=== PATIENT | female | born 1995 | race Caucasian/White ===

== ENCOUNTER 2019-01-14 11:16 | Outpatient (CLI) | payer OTHER ==
--- NOTE | 2019-01-14 13:39 | ULT ---
OB ULTRASOUND: HISTORY: Size and dates. FINDINGS: A single live intrauterine gestation is seen with measurements corresponding to an estimated gestatio nal age of 16 weeks 1 day and MARY ANN at 06/30/2019. The estimated weight measures 147 gm or 5 ounc es. measurements are as follows: BPD 3.18 cm, 16 weeks HC 12.28 cm, 16 weeks 1 day AC 10.24 cm, 16 weeks 2 days FL 2.05 cm, 16 weeks 1 day heart rate measures 149 b.p.m. Placenta is anteriorly located without evidence of placenta pre via. Amniotic fluid within normal limits. IMPRESSION: Single live intrauterine of 16 weeks 1 day estimated gestational age and estimated date of delivery at 06/30/2019. POS: OFF
== END 2019-01-14 11:17 | disposition home or self-care (01) ==
LOC: SCSULT 11:16
PROVIDERS: ATTEND Nurse Practitioner
DX: Z34.02 Encounter for supervision of normal first pregnancy, second trimester (principal); Z3A.16 16 weeks gestation of pregnancy
CPT/HCPCS: 76805

== ENCOUNTER 2019-02-23 13:54 | Outpatient (CLI) | payer OTHER ==
--- NOTE | 2019-02-23 15:29 | ULT ---
EXAM: OB ultrasound COMPARISON: None HISTORY: female. Evaluate size, dates, and anatomy. TECHNIQUE: Multiplanar grayscale and color Doppler transabdominal ultrasound images were obtain ed. FINDINGS: There is a single intrauterine gestation in cephalic presentation. Cardiac Doppler demonstr ates heart tones with a heart rate of 153 bpm. The placenta is located anteriorly without evidence of placenta previa. There are a few hypoechoic areas seen within the placenta which may represent venous lakes or areas of fibrin deposition. There is a normal amount of amniotic fluid with an amniotic fluid index of 10.6 cm. The cervical length measures 6.73 cm based on transabd ominal imaging. biometry measurements: BPD 5.25 cm -- 22 weeks 0 days HC 19.12 cm -- 21 weeks 3 days AC 17.58 cm -- 22 weeks 3 days FL 3.95 cm -- 22 weeks 5 days The estimated gestational age by ultrasound is 21 weeks and 6 days with an MARY ANN on 06/30/2019. Gestatio nal age by last menstrual period is also 21 weeks and 6 days. The estimated weight by ultrasound is 505 g (1 pound, 2 ounces). This represents 75th percentil e for weight. There is suggestion of a 4 chambered heart. The visualized cerebellum, visualized portions of the fet al spine, stomach, bilateral kidneys, urinary bladder, and cord insertion demonstrate a normal sonographic appearance. A three-vessel cord is not well delineated on this examination, but there is flow on either side of the urinary bladder which suggests a three-vessel cord. No definite anomalies are seen. IMPRESSION: 1. Single intrauterine gestation cephalic presentation with heart tones documented. Estimated g estational age by ultrasound is 21 weeks and 6 days with MARY ANN on 06/30/2019. 2. Estimated weight by ultrasound is 505 g (1 pound, 2 ounces). 3. Amniotic fluid index measures 10.6 cm.
== END 2019-02-23 13:55 | disposition home or self-care (01) ==
LOC: SCSULT 13:54
PROVIDERS: ATTEND Obstetrics & Gynecology
DX: Z34.82 Encounter for supervision of other normal pregnancy, second trimester (principal); Z3A.21 21 weeks gestation of pregnancy
CPT/HCPCS: 76805